=== PATIENT | male | born 1980 | race Caucasian/White ===

== ENCOUNTER 2024-08-29 17:18 | Emergency (ER) | payer SELFPAY ==
[2024-08-29 17:22] VITALS: BP 137/95; PULSE 108; RESP 14; TEMP 36.7; O2SAT 95; BMI 29.2
--- NOTE | 2024-08-29 17:51 | W.ED.WOUNDLC ---
HPI - Wound/Laceration General: Chief Complaint: Wound/Laceration Stated Complaint: R hand lac Time Seen by Provider: 08/29/24 17:28 History of Present Illness: 44-year-old male is presenting with laceration to his right hand that he accidentally sustained just prior to arrival when he was walking past and brushed it up against a steel clean lid. He denies any other injuries no associated numbness or motor weakness. Does not remember the exact time of his last tetanus shot. Associated symptoms: Denies fever(s) Related Data Home Medications ?Medication ?Instructions ?Recorded ?Confirmed amoxicillin 875 mg-potassium tab PO 09/06/23 09/06/23 clavulanate 125 mg tablet Previous Rx's ?Medication ?Instructions ?Recorded qxclgenv-xnqgmrmtg-ctxihupkq 3.5 4 drp otic (ear) TID 10 days #10 mL 09/06/23 mg-10,000 unit/mL-1 % ear drops,susp Allergies Allergy/AdvReac Type Severity Reaction Status Date / Time No Known Allergies Allergy Verified 08/29/24 17:26 Review of Systems Const: Denies: fever(s), change in appetite or change in sleep pattern Eyes: Denies: change in vision ENMT: Reports: other (object in left ear); Denies: odynophagia, hoarseness, nasal congestion or post nasal drip Card: Denies: chest pain or swelling of feet/ankles Resp: Denies: dyspnea or non-productive cough GI: Denies: abdominal pain, dysphagia, heartburn, change in bowel habits or hematochezia : Denies: hematuria Musc: Denies: neck pain, back pain or joint stiffness Skin/Breast: Denies: rash or pruritus Neuro: Denies: headache(s), difficulty walking or dizziness Psych: Denies: anxiety, depression, irritability or suicidal ideation Endo: Denies: hot flashes Reinaldo/Lymph: Denies: easy bruising or enlarged lymph nodes All/Imm: Denies: seasonal rhinorrhea PFS ED PFSH: Medical History History of eustachian tube dysfunction Surgical History History of inguinal hernia repair, bilateral age 14 and 25 History of neck surgery 2019 Family History Other Cancer Diabetes Hypertension Social History Smoking and tobacco/nicotine status: current every day tobacco/nicotine user Alcohol intake: unknown Substance/Drug Use: unknown Adopted: No Caregiver/support person: No Lives independently: Yes Household members: significant other and children Housing: House Marital status: Single Number of children: 1 service: No Current occupational status: employed Current occupation: [employer] Do you think of yourself as: Straight/Heterosexual Current gender identity: Male Physical Exam Const: GENERAL APPEARANCE: cooperative and well kempt NUTRITIONAL APPEARANCE: overweight ORIENTATION/CONSCIOUSNESS: Yes oriented to person, Yes oriented to place and Yes oriented to time HENMT: COMMON NORMALS: external ears normal and Normal nasal mucous membranes and turbinates present NOSE: Normal nasal mucous membranes and turbinates present and No nasal discharge present EXTERNAL EAR: Yes external ears normal EXTERNAL AUDITORY CANAL: Abnormal EAC present EAC laterality: left Details: EAC tenderness and foreign body (unable to irrigate or manual remove) TYMPANIC MEMBRANE: TM normal on the right and unable to visualize TM (left) MOUTH: Normal oral and palatal mucosa present Eye: COMMON NORMALS: Equal, round and reactive pupils present and conjunctivae normal EYELID: eyelids normal CONJUNCTIVA: Yes conjunctivae normal PUPIL: Yes Equal, round and reactive pupils present Neck/C-Spine: GENERAL: Yes normal visual inspection CERVICAL SPINE: Yes cervical ROM normal Lymph: LYMPHATIC: no lymphadenopathy noted Chest: CHEST: Yes Symmetrical chest wall rise Resp: COMMON NORMALS: clear to auscultation bilaterally EFFORT & INSPECTION: Yes able to speak in complete sentences AUSCULTATION: clear to auscultation bilaterally Cardio: COMMON NORMALS: regular rate, regular rhythm and No murmurs present (Cardio) RATE: regular rate RHYTHM: regular rhythm HEART SOUNDS: no murmurs Extremity: GENERAL: No edema and Yes other findings (2 cm laceration in the webspace between the thumb and the index finger of t) Neuro: SENSORIUM/ORIENTATION: Yes oriented to person, Yes oriented to place and Yes oriented to time SPEECH: speech normal GAIT: Yes Normal gait present MOTOR EXAM: No Tremors during motor activity present Psych: COMMON NORMALS: speech normal APPEARANCE: Yes well kempt ATTITUDE: Yes engaged SPEECH: Yes normal speech MOOD & AFFECT: Yes anxious THOUGHT CONTENT: No Suicidality present and No Homicidality present Procedures Laceration Laceration 1: Site: upper extremity (Right hand) Side (If applicable): right Size (cm): 2 Description: linear Depth: simple, single layer Local Anesthetic: lidocaine 1% and with epi Skin layer closed with: nylon Size (cm): 4-0 Number of sutures: 3 Technique: simple, interrupted Course Vital Signs: Vital signs: Vital Signs Temperature 98.0 F 08/29/24 17:22 Pulse Rate 108 H 08/29/24 17:22 Respiratory Rate 14 08/29/24 17:22 Blood Pressure 137/95 08/29/24 17:22 Pulse Oximetry 95 08/29/24 17:22 Oxygen Delivery Me thod Room Air 08/29/24 17:22 MDM - Wound/Laceration Medical Decision Making Patient presented with laceration to the first webspace between the thumb and the index finger which was repaired with 4-0 nylon sutures x 3. Tetanus to be updated. Dressing applied plan . Sutures to be removed in 2 weeks and other suture care instructions provided. 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
[2024-08-29] MEDS: tetanus-dipt-pertussis 0.5 mL SDV IM (18:11)
== END 2024-08-29 18:22 | disposition home or self-care (01) ==
PROVIDERS: Emergency Provider Emergency Medicine
DX: S61.411A Laceration without foreign body of right hand, initial encounter (principal); Z72.0 Tobacco use; X58.XXXA Exposure to other specified factors, initial encounter
CPT/HCPCS: 12001; 90471; 90715; 99283

== ENCOUNTER 2025-01-27 01:20 | Emergency (ER) | payer SELFPAY ==
[2025-01-27 01:26] VITALS: BP 118/71; PULSE 93; RESP 18; TEMP 37.2; O2SAT 95; BMI 28.0
--- NOTE | 2025-01-27 01:43 | ED_ITS ---
HPI - Overdose General: Chief Complaint: Overdose Stated Complaint: OD Time Seen by Provider: 01/27/25 01:32 History of Present Illness: Selected Entries 01/27/25 01:26 ED Triage Comment Pt. brought in by [facility] ems a fter smoking K2 at home and parents found patient pass ed out in his room . Pt. is pale and diaphoretic and c onfused on arrival to ER. Patient is 45-year-old male that reports to the emergency room by EMS after smoking K2 at home and parents found him passed out. He was reported to be pale, and diaphoretic, and confused. He is obtunded at time of arrival to ED. also relates that he was not responding to them. He is responding at the time my interview. He remembers all events tonight. Related Data Home Medications ?Medication ?Instructions ?Recorded ?Confirmed amoxicillin 875 mg-potassium tab PO 09/06/23 09/06/23 clavulanate 125 mg tablet Previous Rx's ?Medication ?Instructions ?Recorded ypziltcl-hxxiosemi-uhsbprotd 3.5 4 drp otic (ear) TID 10 days #10 mL 09/06/23 mg-10,000 unit/mL-1 % ear drops,susp Allergies Allergy/AdvReac Type Severity Reaction Status Date / Time No Known Allergies Allergy Verified 08/29/24 17:26 Review of Systems Const: Denies: fever(s), change in appetite or change in sleep pattern Eyes: Denies: change in vision ENMT: Denies: odynophagia, hoarseness, nasal congestion or post nasal drip Card: Denies: chest pain or swelling of feet/ankles Resp: Denies: dyspnea or non-productive cough GI: Denies: abdominal pain, dysphagia, heartburn, change in bowel habits or hematochezia : Denies: hematuria Musc: Denies: neck pain, back pain or joint stiffness Skin/Breast: Denies: rash or pruritus Neuro: Denies: headache(s), difficulty walking or dizziness Psych: Denies: anxiety, depression, irritability or suicidal ideation Endo: Denies: hot flashes Reinaldo/Lymph: Denies: easy bruising or enlarged lymph nodes All/Imm: Denies: seasonal rhinorrhea [facility] ED PFSH: Medical History (Updated 01/27/25 @ 02:08 by JOSE E Bolden) History of eustachian tube dysfunction Surgical History History of inguinal hernia repair, bilateral age 14 and 25 History of neck surgery 2019 Family History Other Cancer Diabetes Hypertension Social History Smoking and tobacco/nicotine status: current every day tobacco/nicotine user Alcohol intake: unknown Substance/Drug Use: unknown Adopted: No Caregiver/support person: No Lives independently: Yes Household members: significant other and children Housing: House Marital status: Single Number of children: 1 service: No Current occupational status: employed Current occupation: [employer] Do you think of yourself as: Straight/Heterosexual Current gender identity: Male Physical Exam Const: GENERAL APPEARANCE: cooperative and well kempt NUTRITIONAL APPEARANCE: overweight ORIENTATION/CONSCIOUSNESS: Yes oriented to person, Yes oriented to place and Yes oriented to time HENMT: COMMON NORMALS: external ears normal, TM's normal bilaterally and Normal nasal mucous membranes and turbinates present NOSE: Normal nasal mucous membranes and turbinates present and No nasal discharge present EXTERNAL EAR: Yes external ears normal TYMPANIC MEMBRANE: TM's normal bilaterally MOUTH: Normal oral and palatal mucosa present Eye: COMMON NORMALS: Equal, round and reactive pupils present and conjunctivae normal EYELID: eyelids normal CONJUNCTIVA: Yes conjunctivae normal PUPIL: Yes Equal, round and reactive pupils present Neck/C-Spine: GENERAL: Yes normal visual inspection CERVICAL SPINE: Yes cervical ROM normal Lymph: LYMPHATIC: no lymphadenopathy noted Chest: CHEST: Yes Symmetrical chest wall rise Resp: COMMON NORMALS: clear to auscultation bilaterally EFFORT & INSPECTION: Yes able to speak in complete sentences AUSCULTATION: clear to auscultation bilaterally Cardio: COMMON NORMALS: regular rate, regular rhythm and No murmurs present (Cardio) RATE: regular rate RHYTHM: regular rhythm HEART SOUNDS: no murmurs GI: COMMON NORMALS: Normal to inspection, nondistended, normoactive bowel sounds present, Soft to palpation, non-tender and No hepatosplenomegaly present PALPATION: Yes Soft to palpation and Yes No hepatosplenomegaly present : COMMON NORMALS: Yes no CVA tenderness BLADDER/KIDNEY EXAM: Yes no CVA tenderness Back/Pelvis: COMMON NORMALS: no CVA tenderness Extremity: GENERAL: No edema and Yes other findings (2 cm laceration in the webspace between the thumb and the index finger of t) Neuro: SENSORIUM/ORIENTATION: Yes oriented to person, Yes oriented to place and Yes oriented to time SPEECH: speech normal GAIT: Yes Normal gait pre sent MOTOR EXAM: No Tremors during motor activity present Psych: COMMON NORMALS: speech normal APPEARANCE: Yes well kempt ATTITUDE: Yes engaged SPEECH: Yes normal speech MOOD & AFFECT: Yes anxious THOUGHT CONTENT: No Suicidality present and No Homicidality present Course Vital Signs: Vital signs: Vital Signs Temperature 98.9 F 01/27/25 01:26 Pulse Rate 92 01/27/25 01:58 Respiratory Rate 15 01/27/25 01:58 Blood Pressure 119/73 01/27/25 01:58 Pulse Oximetry 93 01/27/25 01:58 Oxygen Delivery Me thod Room Air 01/27/25 01:58 MDM - Overdose Medical Decision Making Patient is remorseful regarding today's events. He looks me right in the eye and said he was sorry. His vitals are stable. I do not have any reason to run any additional testing. This appears to be consistent with this adventurous drug use. Asked patient if he wanted me to run any additional testing, and he declined. Will discharge him home with his parents are at bedside. Explained all these things to his parents and they state understanding. All radiology interpretation(s) finalized by discharge Discharge Plan Discharge Patient Disposition: Home Clinical Impression: Acute drug intoxication Qualifiers: Complication of substance-induced condition: uncomplicated Qualified Code(s): F19.920 - Other psychoactive substance use, unspecified with intoxication, uncomplicated Condition: Stable Prescriptions: No Action amoxicillin-pot clavulanate 875-125 mg tablet PO dckhadqy-jyqsdnxbn-SZ 3.5-10,000-1 mg/mL-unit/mL-% drops,suspension 4 drp otic (ear) TID 10 Days Qty: 10 0RF Discharge Orders: Discharge ED (Routine); Ordered 01/27/25 Ordered By: Sona Arredondo Discharge Diet: Advance as tolerated Discharge Activity: Increase activity as tolerated Patient Instructions: Polysubstance Use Disorder (ED), Patient Portal & Lita Instructions Activity Restrictions/Additional Instructions: - Take good care of yourself. Do not use drugs. Drugs cause you to not know w here you are, or what is going on. 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
[2025-01-27 01:45] VITALS: BP 131/75; PULSE 90; RESP 24; O2SAT 93
[2025-01-27 01:58] VITALS: BP 119/73; PULSE 92; RESP 15; O2SAT 93
[2025-01-27 02:24] VITALS: BP 119/73; PULSE 89; O2SAT 93
== END 2025-01-27 02:09 | disposition home or self-care (01) ==
PROVIDERS: Emergency Provider Physician Assistant
DX: F19.920 Other psychoactive substance use, unspecified with intoxication, uncomplicated (principal); Z72.0 Tobacco use
CPT/HCPCS: 99283; J9999